=== PATIENT | female | born 1990 | race Caucasian/White ===

== ENCOUNTER 2019-03-10 08:14 | Inpatient (IN) | payer OTHER ==
[~2019-03-10] VITALS: Ht 156.2 cm; Wt 84.5 kg
[2019-03-14] VITALS (55 sets, daily range): BP systolic 83–145; BP diastolic 54–103; PULSE 65–131; TEMP 97.3–98.1
--- NOTE | 2019-03-14 09:30 | NUR ---
Pt arrives on unit ambulatory with spouse for induction of labor. Denies vaginal bleeding, regular ctx, LOF and reports GFM. Changed into clean gown. EFM and toco applied. VSS. Admission assessment completed. Consents signed. IV started in LH. LR infusing. Pt updated on POC. Safety reviewed. Bed locked in low position. Call light within reach. No questions or concerns at this time. 1005-Dr. Ruiz at bedside. AROM of clear fluid. SVE /-2.
[2019-03-14 13:10] LABS: BASO % 0.1 % (0.0-2.0); EOS % 0.2 % (0-4.0); GRAN # 5.9 (1.4-6.5); GRAN % 73.2 % (42.2-75.2); HEMOGLOBIN 11.9 g/dl (12.5-16.0); LYMPH # 1.6 (1.2-3.4); LYMPH % 20.1 % (20.0-51.0); MEAN CELL VOLUME 89 fl (80.0-100.0); MEAN CORPUSCULAR HEMOGLOBIN 30 pg (27.0-31.0); MEAN CORPUSCULAR HGB CONC 34 g/dl (33.0-37.0); MEAN PLATELET VOLUME 11.4 fl (7.4-10.4); MONO # 0.5 (0.1-0.6); MONO % 5.5 % (1.7-9.3); PLATELET COUNT 144 K/mm3 (130-400); RED BLOOD COUNT 3.97 M/mm3 (4.10-5.30)
[2019-03-14 13:16] LABS: HEMATOCRIT 35.4 % (37.0-47.0)
--- NOTE | 2019-03-14 14:43 | NUR ---
Pt sitting upright for epidural placement. Difficulty tracing FHR due to maternal position. RN at bedside adjusting monitors. FHR audible.
--- NOTE | 2019-03-14 18:45 | NUR ---
183- LATE DECELERATION INTO THE 50'S DURING POSITION CHANGE. 1839- DR. CARRASCO IN ROOM TO EVALUATE PT. SVE PERFORMED, FHT'S INCREASE TO THE 150'S WITH SCALP STIMULATION PERFORMED BY DR. CARRASCO. SVE OF 8-9/90/0-+1 1847- REPOSITIONED IN HIGH FOWLERS. FHT'S BASELINE CHANGE TO 100, 02 APPLIED AND FLUID BOLUS STARTED. 1851- REPOSITIONED TO LEFT LATERAL WITH RIGHT LEG IN STIRRUP. FHT'S IMPROVING WITH POSITION CHANGE, O2 AND FLUID BOLUS.
--- NOTE | 2019-03-14 19:45 | NUR ---
1936- DR CARRASCO IN ROOM TO EVALUATE. SVE PERFORMED. 193- PROLONGED DECELARATION WITH SVE, FHT'S INTO THE 90'S FOR APPROXIMALTEY 5 MINUTES. POSITION CHANGE TO RIGHT LATERAL WITH LEFT LEG IN STIRRUP FOLLOWING SVE. FHT'S IMPROVE TO BASELINE OF 150 WITH MODERATE VARIABILITY AND INTERMITTENT EARLY DECELERATIONS.
--- NOTE | 2019-03-14 20:45 | NUR ---
2026- DR. CARRASCO IN ROOM TO EVALUATE, SVE PERFORMED, UNCHANGED FROM PREVIOUS EXAM. 2033- DR. CARRASCO DISCUSSES OPTIONS MOVING FORWARD. QUESTIONS ENCOURAGED AND ANSWERED. PT AND SPOUSE TO DISCUSS AND NOTIFY THIS NURSE WHEN THEIR DECISION IS MADE. PT REPOSITIONED IN HIGH FOWLERS WITH RIGHT WEDGE.
--- NOTE | 2019-03-14 21:00 | NUR ---
PT VOMITS 250MLS.
--- NOTE | 2019-03-14 21:10 | NUR ---
FLUID BOLUS STARTED DUE TO TACHYCARDIA.
--- NOTE | 2019-03-14 21:15 | NUR ---
PT AND SPOUSE WISH TO WAIT UNTIL 2229, IF SVE REMAINS UNCHANGED THEY WILL OPT FOR .
--- NOTE | 2019-03-14 22:02 | NUR ---
2202- DR. CARRASCO IN ROOM TO EVALUATE PT, SVE REMAINS UNCHANGED AT THIS TIME. PT AND SPOUSE AGREE TO . 2217- MONS PUBIS CLIPPED, ABDOMINAL PREP COMPLETED. PT OFF MONITORS AT THIS TIME AND TRANSFERRED TO OR FOR NON-EMERGENT FOR ARREST OF DESCENT AND DILATION.
[2019-03-15] VITALS (12 sets, daily range): BP systolic 90–124; BP diastolic 61–83; PULSE 89–124; TEMP 97.6–99.7
[2019-03-15] MEDS ORDERED: PERCOCET 325 MG1 TA2 PO (07:52)
[2019-03-15] MEDS ORDERED: MOTRIN 800800 MG/TAB PO (07:52)
--- NOTE | 2019-03-15 10:36 | NUR ---
Initial visit; Parent thanked [employer] for offering congratulations and God's blessings for the of her son. [employer] thanked Mom for choosing our hospital.
[2019-03-16 08:45] VITALS: BP 122/67; PULSE 92; TEMP 98.1
[2019-03-16 17:25] VITALS: BP 115/69; PULSE 96; TEMP 98.3
[2019-03-16 22:00] VITALS: BP 129/87; PULSE 120; TEMP 97.1
[2019-03-17 06:50] VITALS: BP 111/72; PULSE 100; TEMP 97.8
--- NOTE | 2019-03-17 11:08 | NUR ---
Patient given discharge instructions. Reviewed warning signs and instructions. Denies questions and verbalizes understanding. Car seat straps checked.
== END 2019-03-17 11:20 | disposition home or self-care (01) | DRG 788 ==
LOC: EDSTATUS 08:14 → LDRO 12:13 → LDR 03-14 08:17 → OB 03-14 09:19 → LDR 03-14 09:19 → OB 03-15 00:10
PROVIDERS: ADMIT Obstetrics & Gynecology
PROC: 10D00Z1 Extraction of Products of Conception, Low, Open Approach (ICD-10-PCS; principal; 2019-03-14)
DX: O48.0 Post-term pregnancy (principal); O62.1 Secondary uterine inertia; Z3A.40 40 weeks gestation of pregnancy; Z37.0 Single live birth; O99.02 Anemia complicating childbirth; D64.9 Anemia, unspecified
CPT/HCPCS: J0690; J1885; J2210; J2370; J2400; J2405; J2590; J3010; J7120

== ENCOUNTER 2021-10-18 08:00 | Inpatient (IN) | payer OTHER ==
[2021-10-18] VITALS (21 sets, daily range): BP systolic 125–165; BP diastolic 77–113; PULSE 58–83; TEMP 97.6–98
[~2021-10-18] VITALS: Ht 154.9 cm; Wt 90.5 kg
[~2021-10-18 08:00] MED LIST: MOTRIN 800800 MG/TAB PO; PERCOCET 325 MG1 TA2 PO
[2021-10-18 08:50] LABS: BASO % 0.2 % (0.0-2.0); EOS % 0.2 % (0.0-4.0); GRAN # 9.3 K/mm3 (1.4-6.5); GRAN % 81.5 % (42.2-75.2); HEMOGLOBIN 11.1 g/dl (12.5-16.0); LYMPH # 1.5 K/mm3 (1.2-3.4); LYMPH % 13.3 % (20.0-51.0); MEAN CELL VOLUME 88 fl (80.0-100.0); MEAN CORPUSCULAR HEMOGLOBIN 30 pg (27-31); MEAN CORPUSCULAR HGB CONC 34 g/dl (33.0-37.0); MEAN PLATELET VOLUME 11.5 fl (7.4-10.4); MONO # 0.5 K/mm3 (0.1-0.6); MONO % 4.3 % (1.7-9.3); PLATELET COUNT 147 K/mm3 (130-400); RED BLOOD COUNT 3.69 M/mm3 (4.10-5.30); REDCELL DISTRIBUTION WIDTH-CV 13.1 % (11.5-14.5)
[2021-10-18 08:51] LABS: HEMATOCRIT 32.4 % (37.0-47.0)
[2021-10-18 09:22] LABS: ALBUMIN 2.5 gm/dL (3.5-5.0); BILIRUBIN,TOTAL 0.6 mg/dL (0.2-1.2); CALCIUM 8.7 mg/dL (8.4-10.2); CREATININE, serum 0.63 mg/dL (0.57-1.11); POTASSIUM 3.7 mmol/L (3.5-4.5); TOTAL PROTEIN 5.8 gm/dL (6.2-8.1); URIC ACID 5.8 mg/dL (2.6-6.0)
--- NOTE | 2021-10-18 13:00 | NUR ---
THIS RN MONITORING PATIENT [id number]. REPORT PASSED OFF TO Alix HOLLIDAY AT 1300.
--- NOTE | 2021-10-18 18:45 | NUR ---
Report recieved at this time.
--- NOTE | 2021-10-18 22:15 | NUR ---
Tearful at this time. Reports sharp, pulling pain on the left side of her inc. Percocet administered and crackers to bedside for pt to snack on. Urine at 2004 was yellow and clear. Urine now is tea colored as it was upon first taking over care. 125mls of urine emptied from fan catheter. Repositioned in bed. HOB elevated to a 90 degree angle. Patient reports sitting up helps with the pain. To call for a second percoccet at 2300 if her pain is not relieved.
[2021-10-19 00:30] VITALS: BP 141/88; PULSE 87; TEMP 97.6
--- NOTE | 2021-10-19 00:30 | NUR ---
Ambulated to the restroom with a steady gait. Yanez cathetered dc'd per physician's order. Tolerated well. Pericare done. Fresh linenes to bed. To bench where she is .
[2021-10-19 04:40] VITALS: BP 136/83; PULSE 80; PULSE 89; TEMP 97.8
[2021-10-19 06:12] LABS: HEMOGLOBIN 10.2 g/dl (12.5-16.0)
[2021-10-19 06:21] LABS: HEMATOCRIT 29.4 % (37.0-47.0)
[2021-10-19 09:30] VITALS: BP 128/84; PULSE 94; TEMP 98.1
[2021-10-19 13:00] VITALS: BP 130/85; PULSE 91; TEMP 97.7
--- NOTE | 2021-10-19 18:50 | NUR ---
Report recieved. Percocet administered per request. Resting in bed. Updated whiteboard and reviewed POC.
[2021-10-19 20:00] VITALS: BP 141/90; PULSE 95; TEMP 97.7
[2021-10-20] MEDS ORDERED: PERCOCET 325 MG1 TA2 PO (08:20)
[2021-10-20] MEDS ORDERED: MOTRIN 600600 MG/TAB PO (08:20)
[2021-10-20 08:29] VITALS: BP 142/95; PULSE 82; TEMP 98.1
== END 2021-10-20 12:17 | disposition home or self-care (01) | DRG 788 ==
LOC: LDR 08:00 → LDRO 08:00 → OB 12:21 → LDRO 16:27 → OB 10-20 12:17
PROVIDERS: ADMIT Obstetrics & Gynecology
PROC: 10D00Z1 Extraction of Products of Conception, Low, Open Approach (ICD-10-PCS; principal; 2021-10-18)
DX: O34.211 Maternal care for low transverse scar from previous cesarean delivery (principal); Z37.0 Single live birth; O69.81X0 Labor and delivery complicated by cord around neck, without compression, not applicable or unspecified; O14.04 Mild to moderate pre-eclampsia, complicating childbirth; O99.02 Anemia complicating childbirth; D64.9 Anemia, unspecified; Z3A.40 40 weeks gestation of pregnancy
CPT/HCPCS: J0690; J1885; J2405; J2590; J7120